=== PATIENT | male | born 2005 | race Caucasian/White ===

== ENCOUNTER 2025-03-14 11:12 | Emergency (ER) | payer MEDICAID ==
[~2025-03-14] VITALS: Ht 160 cm; Wt 55.0 kg
[2025-03-14 11:52] VITALS: BP 134/89
== END 2025-03-14 11:53 | disposition home or self-care (01) ==
LOC: ED 11:12
DX: S01.21XA Laceration without foreign body of nose, initial encounter (principal); W26.8XXA Contact with other sharp object(s), not elsewhere classified, initial encounter
CPT/HCPCS: 99282